=== PATIENT | male | born 1995 | race Caucasian/White ===

== ENCOUNTER → 2020-10-26 12:10 | Outpatient (CLI) | payer MEDICAID, SELFPAY ==
[2020-10-26 14:03] LABS: NATERA MAILED SPECIMEN
== END ==
PROVIDERS: PCP Family Medicine; Visit Provider Obstetrics & Gynecology
DX: Z31.440 Encounter of male for testing for genetic disease carrier status for procreative management (principal)

== ENCOUNTER → 2020-11-23 15:36 | Outpatient (CLI) | payer MEDICAID, SELFPAY | PROVIDERS: PCP Family Medicine; Referring Provider Obstetrics & Gynecology; Visit Provider Obstetrics & Gynecology | DX: Z31.440 Encounter of male for testing for genetic disease carrier status for procreative management (principal) | CPT/HCPCS: 36415 ==